=== PATIENT | male | born 1990 | race Caucasian/White ===

== ENCOUNTER 2020-02-22 22:09 | Emergency (ER) | payer OTHER ==
[~2020-02-22] VITALS: Ht 170.2 cm; Wt 86.2 kg
[2020-02-22] MEDS ORDERED: IMITREX50 MG PO (23:22)
[2020-02-22] MEDS ORDERED: LIPITOR10 MG PO (23:22)
[2020-02-22] MEDS ORDERED: DOCUSATE SODIU100 MG PO (23:23)
[2020-02-22] MEDS ORDERED: ANTI-ITCH28 G1 TOP (23:23)
[2020-02-22] MEDS ORDERED: MONTELUKAST SOD10 MG PO (23:24)
[2020-02-22] MEDS ORDERED: NAPROXEN375 MG PO (23:27)
[2020-02-22] MEDS ORDERED: OMEPRAZOLE20 MG PO (23:27)
[2020-02-22] MEDS ORDERED: PROPRANOLOL HCL40 MG PO (23:28)
--- NOTE | 2020-02-23 19:07 | EKG ---
[facility] [address] [facility] [place] [address] Signed Normal sinus rhythm Normal ECG No previous ECGs available Confirmed by BETH GREENE MD ([id number]) on 02/23/2020 7:07:42 PM Electronically Signed By: BETH GREENE MD 02/23/20 1907 PATIENT NAME: SAMPSON SANDHU Electrocardiogram DATE OF : 88 PHYSICIAN: BETH GREENE MD REPORT #: [id number] REPORT IS CONFIDENTIAL AND NOT TO BE RELEASED WITHOUT AUTHORIZATION
== END 2020-02-23 05:31 | disposition home or self-care (01) ==
LOC: ED 22:09
DX: T48.6X2A Poisoning by antiasthmatics, intentional self-harm, initial encounter (principal); T46.6X2A Poisoning by antihyperlipidemic and antiarteriosclerotic drugs, intentional self-harm, initial encounter; T39.312A Poisoning by propionic acid derivatives, intentional self-harm, initial encounter; Z79.899 Other long term (current) drug therapy
CPT/HCPCS: 80048; 80053; 80176; 85025; 93005; 93010; 99285-25; G0480